=== PATIENT | female | born 1970 | race Caucasian/White ===

== ENCOUNTER → 2020-11-09 | Day surgery (SDC) | payer OTHER ==
[~2020-11-09] MED LIST: AUGMENTIN 875-1 EACH PO; CENTRUM ADULTS1 EACH PO; FLOMAX 0.4 MG0.4 MG PO; HYDROXYZINE HCL25 MG PO; NAPROSYN375 MG PO; NORCO 7.5-3251 EACH PO; SIMVASTATIN10 MG PO; TURMERIC COMPL1 EACH PO
== END | disposition home or self-care (01) ==
LOC: FAS 09:52
DX: Z12.11 Encounter for screening for malignant neoplasm of colon (principal); D12.2 Benign neoplasm of ascending colon; D12.3 Benign neoplasm of transverse colon; K64.0 First degree hemorrhoids; K62.1 Rectal polyp; K21.9 Gastro-esophageal reflux disease without esophagitis; I10 Essential (primary) hypertension; E78.00 Pure hypercholesterolemia, unspecified; F17.210 Nicotine dependence, cigarettes, uncomplicated; G43.909 Migraine, unspecified, not intractable, without status migrainosus; Z20.822 Contact with and (suspected) exposure to COVID-19; Z80.0 Family history of malignant neoplasm of digestive organs; Z86.010 Personal history of colon polyps; Z79.899 Other long term (current) drug therapy; Z88.8 Allergy status to other drugs, medicaments and biological substances; Z87.19 Personal history of other diseases of the digestive system; Z90.710 Acquired absence of both cervix and uterus
CPT/HCPCS: J2250; J7120; U0002

== ENCOUNTER 2021-07-22 16:38 | Emergency (ER) | payer OTHER ==
[2021-07-22 18:22] LABS: BASOPHIL 0.7 % (0-2); HCT 47.8 % (37.0-47.0); HGB 16.7 g/dl (12.5-16.0); LYMPHOCYTE 34.9 % (15-48); MCHC 34.9 g/dL (32.0-36.0); MCV 88.8 fL (78.0-100.0); MONOCYTE 6.3 % (0-12); MPV 10.7 fL (6.0-9.5); NEUTROPHIL 54.6 % (41-80); NRBC 0; PLT 310 K/uL (150-400); RBC 5.38 M/uL (4.20-5.40); RDW 12.3 % (11.5-14.0)
[2021-07-22 18:48] LABS: ALBUMIN 3.8 g/dL (3.4-5.0); BILIRUBIN - TOTAL 0.4 mg/dL (0.2-1.0); BUN/CREAT RATIO (CALC) 14.1 RATIO; CREATININE 0.71 mg/dL (0.51-0.95); GLOBULIN (CALCULATION) 3.8 g/dL; POTASSIUM 3.7 mmol/L (3.5-5.1); TOTAL PROTEIN 7.6 g/dL (6.4-8.2)
== END 2021-07-22 19:40 | disposition home or self-care (01) ==
LOC: FER 16:38
PROVIDERS: Emergency Medicine
DX: E11.65 Type 2 diabetes mellitus with hyperglycemia (principal); F17.210 Nicotine dependence, cigarettes, uncomplicated; Z88.5 Allergy status to narcotic agent
CPT/HCPCS: 36415; 80053; 82009; 83036; 84145; 84443; 85025; 93005; J7030